=== PATIENT | female | born 1990 | race Caucasian/White ===

== ENCOUNTER 2018-07-30 09:53 | Outpatient (CLI) | payer OTHER, SELFPAY ==
[2018-07-30 11:40] LABS: TSH (W/Ref FT4) 1.33 uIU/mL (0.358-3.74)
== END 2018-07-30 10:13 ==
PROVIDERS: PCP Nurse Practitioner; Visit Provider Nurse Practitioner
DX: I10 Essential (primary) hypertension (principal)
CPT/HCPCS: 36415; 84443

== ENCOUNTER 2018-12-12 11:35 | Emergency (ER) | payer OTHER, SELFPAY ==
[2018-12-12 11:37] VITALS: BP 120/77; PULSE 78; RESP 16; TEMP 37.1; O2SAT 96
--- NOTE | 2018-12-12 11:47 | W.ED.GENAD ---
Discharge Plan Disposition Patient Disposition: HOME Condition: Fair Discharge Details Chief Complaint: Sorethroat Clinical Impression: URI (upper respiratory infection) Primary Care Provider: Malu Morton ED Provider: Diana Billings Home Meds and New Rx's Prescriptions: Continued metronidazole 1 % gel 1 applic TP DAILY Qty: 60 RF: 3 fluticasone propionate [Allergy Relief (fluticasone)] 50 mcg/actuation spray,suspension 2 spray BHARTI DAILY Qty: 15.8 RF: 12 Mirena 1 EACH intrauterine device 1 ea Intrauterine ONCE Qty: 1 RF: 0 Discharge Instructions Instructions: Upper Respiratory Infection (ED) Additional Instructions: Encourage hydration. Tylenol and or ibuprofen as needed for discomfort. You may try Mucinex tabs in the medic management. Please continue with nasal saline. If you develop shortness of breath, difficulty breathing, inability stay hydrated or other new/worsening symptoms please seek care urgently once again. Otherwise, please follow-up with primary care in 1 week for reevaluation if symptoms persist Referrals: Malu Morton, RADIO HOST [Primary Care Provider] - Medical Decision Making Patient is a 28 year old female presenting wth c/c of sore throat, congestion, ear fullness bilaterally, cough, sinus pressure, that began 3 days ago. No fevers/chills. Denies SOB or CP. Denies GI upset. No body aches. Has sinus discomfort buit no MURILLO. Has tried Ibprforn for symptomatic management. Son recently diagnosed with strep, concerned she may have this. Exam is concerning for mildly erythematous posterior orophrynx with cobblestoning noted. No trismus, uvula midline, no swelling under tongue. Lungs clear. Rapid strep negative. Advised this is likely viral etiology. Encourage hydration. Advise on home remedies and OTC medications that may help with symptomatic management. All questions and concerns were addressed, she is in agreement with klaudia parnell. Will f/u with PCP if not improved in one week. HPI General Mode of arrival: ambulatory. Date/Time Provider Initiated Documentation: 12/12/18 11:47. Limitations to Documentation: no limitations. Information obtained by: patient and RN notes reviewed. History of Present Illness 28 year old F presents to the emergency department with the chief complaint of URI symptoms, described as mild, Quality is described as burning, and is localized to the mouth (sore throat). Patient reports no radiation. Patient started experiencing this day(s) (3) and it has been constant. No relieving factors improve symptom(s), No exacerbating factors reported . Patient notes cough; denies chest pain, diaphoresis, fever/chills, loss of appetite, malaise, rash, shortness of breath and weakness. Patient did receive the following treatments prior to arrival, none Related Data Home Medications Medication Instructions Recorded Confirmed Mirena 1 ea INTRAUTERINE ONCE #1 implant 06/23/17 12/12/18 fluticasone propionate 50 2 spray BHARTI DAILY #15.8 gm 07/30/18 12/12/18 mcg/actuation nasal spray,suspension metronidazole 1 % topical gel 1 applic TP DAILY #60 gm 09/24/18 12/12/18 Previous Rx's Medication Instructions Recorded fluticasone propionate 50 2 spray BHARTI DAILY #15.8 gm 07/30/18 mcg/actuation nasal spray,suspension metronidazole 1 % topical gel 1 applic TP DAILY #60 gm 09/24/18 Allergies Allergy/AdvReac Type Severity Reaction Status Date / Time No Known Allergies Allergy Verified 12/12/18 11:48 General Stated Complaint: Sorethroat BASIL: 4 Review of Systems Constitutional Reports as per HPI, Denies chills, Denies fever(s), Denies headache(s) and Denies poor appetite Eyes Reports as per HPI, Denies eye discharge and Denies irritation ENT Reports as per HPI, Denies ear discharge, Reports otalgia, Denies headache(s), Reports nasal discharge, Reports post nasal drip, Reports sinus pain, Reports sinus pressure, Reports sore throat and Denies throat swelling Cardiovascular Reports as per HPI, Denies chest pain and Denies dyspnea Respiratory Reports as per HPI, Reports cough, Denies hemoptysis, Denies pain on inspiration, Denies pain with cough, Denies dyspnea and Denies wheezing Gastrointestinal Reports as per HPI, Denies abdominal pain, Denies change in bowel habits, Denies nausea and Denies vomiting Integumentary/Breasts Reports as per HPI and Denies rash Neurologic Reports as per HPI and Denies headache(s) Allergic/Immunologic Denies throat swelling and Denies wheezing [facility] Medical History Dysmenorrhea IBS (irritable bowel syndrome) Menorrhagia Obesity Polycystic ovarian syndrome Psoriasis Surgical History Cholecystectomy (03/19/17) Colonoscopy - MAC Tonsillectomy and adenoidectomy wisdome teeth extraction Family History Mother Depression Neoplasm Father Antoinette's disease Maternal Grandmother Neoplasm Paternal Grandmother Neoplasm Stroke Paternal Grandfather Diabetes Neoplasm Sister Anemia Social History Smoking/Tobacco Use Status: Former Tobacco Use Pack-years: 3 Alcohol Intake: current Alcohol Intake frequency: a few times a week Alcohol type: wine Drug use: Never Substance use type: does not use Housing: house Number of Children: 1 current occupation: [employer] Pets and animals: Yes (2 dogs,1 cat) Pets and animals: cat(s) and dog(s) What type of physical activity do you participate in: regular exercise Duration: 30-45 minutes/day Frequency: 3-4 times per week Seatbelt use: always Fire extinguisher in home: Yes Carbon monox detector in home: Yes Firearms in home: No Do you feel safe at home: Yes Do you feel safe in your relationship?: Yes Exam Const General: cooperative, healthy appearing, comfortable, no acute distress, well developed and well groomed Nutritional Appearance: average body habitus and well nourished Orientation: alert and awake [facility] Head: normal to inspection, normocephalic and atraumatic Ears: hearing grossly normal bilaterally, external ears normal and TM's normal bilaterally General nose exam: external nose normal and nares normal Face and sinus: normal facial exam, sinuses nontender and face symmetric Mouth: oral mucosae normal, lip normal, tongue normal, oropharynx normal and moist mucous membranes Teeth and gingiva: dentition normal Throat: posterior oropharynx abnormal (erythematous, cobblestoning noted), tonsils normal, uvula midline and no peritonsillar masses Eyes General: appearance normal, both eyes and all related structures Neck Neck: normal visual inspection, full ROM, no lymphadenopathy and no meningeal signs Resp Effort & Inspection: normal respiratory effort, able to speak in complete sentences and no respiratory distress Auscultation: clear to auscultation bilaterally, no rales, no rhonchi and no wheezes Cardio Rate: regular rate Rhythm: regular rhythm Heart Sounds: S1 normal and S2 normal Skin General skin exam: no rashes or lesions noted Neuro General: alert and awake Cognition: normal cognition Speech: speech normal Gait: normal gait Psych Appearance: grossly normal and well kempt Mental Status: mental status grossly normal Speech and Movement: speech and movement normal Course Vital Signs Temperature 37.1 C 12/12/18 11:37 Pulse 78 12/12/18 11:37 Respiratory Rate 16 12/12/18 11:37 Blood Pressure 120/77 12/12/18 11:37 Pulse Oximetry 96 12/12/18 11:37 Temperature 37.1 C 12/12/18 11:37 Temperature Source Skin 12/12/18 11:37 Pulse 78 12/12/18 11:37 Respiratory Rate 16 12/12/18 11:37 Blood Pressure 120/77 12/12/18 11:37 Blood Pressure Position Sitting 12/12/18 11:37 Pulse Oximetry 96 12/12/18 11:37 Oxygen Delivery Method Room Air 12/12/18 11:37 Oxygen Flow Rate 0 12/12/18 11:37 Pain Level 5 12/12/18 11:37 Comment 12/12/18 11:37
--- NOTE | 2018-12-12 12:00 | ED.GENADUL_ITS ---
Discharge Plan Disposition Patient Disposition: HOME Condition: Fair Discharge Details Chief Complaint: Sorethroat Clinical Impression: URI (upper respiratory infection) Primary Care Provider: Malu Morton ED Provider: Diana Billings Home Meds and New Rx's Prescriptions: Continued metronidazole 1 % gel 1 applic TP DAILY Qty: 60 RF: 3 fluticasone propionate [Allergy Relief (fluticasone)] 50 mcg/actuation spray,suspension 2 spray BHARTI DAILY Qty: 15.8 RF: 12 Mirena 1 EACH intrauterine device 1 ea Intrauterine ONCE Qty: 1 RF: 0 Discharge Instructions Instructions: Upper Respiratory Infection (ED) Additional Instructions: Encourage hydration. Tylenol and or ibuprofen as needed for discomfort. You may try Mucinex tabs in the medic management. Please continue with nasal saline. If you develop shortness of breath, difficulty breathing, inability stay hydrated or other new/worsening symptoms please seek care urgently once again. Otherwise, please follow-up with primary care in 1 week for reevaluation if symptoms persist Referrals: Malu Morton, MAIL PROCESSING ASSOCIATE [Primary Care Provider] - Medical Decision Making Patient is a 28 year old female presenting wth c/c of sore throat, congestion, ear fullness bilaterally, cough, sinus pressure, that began 3 days ago. No fevers/chills. Denies SOB or CP. Denies GI upset. No body aches. Has sinus discomfort buit no MURILLO. Has tried Ibprforn for symptomatic management. Son recently diagnosed with strep, concerned she may have this. Exam is concerning for mildly erythematous posterior orophrynx with cobblestoning noted. No trismus, uvula midline, no swelling under tongue. Lungs clear. Rapid strep negative. Advised this is likely viral etiology. Encourage hydration. Advise on home remedies and OTC medications that may help with symptomatic management. All questions and concerns were addressed, she is in agreement with klaudia parnell. Will f/u with PCP if not improved in one week. HPI General Mode of arrival: ambulatory . Date/Time Provider Initiated Documentation: 12/12/18 11:47 . Limitations to Documentation: no limitations . Information obtained by: patient and RN notes reviewed . History of Present Illness 28 year old F presents to the emergency department with the chief complaint of URI symptoms, described as mild, Quality is described as burning, and is localized to the mouth (sore throat). Patient reports no radiation. Patient started experiencing this day(s) (3) and it has been constant. No relieving factors improve symptom(s), No exacerbating factors reported . Patient notes cough; denies chest pain, diaphoresis, fever/chills, loss of appetite, malaise, rash, shortness of breath and weakness. Patient did receive the following treatments prior to arrival, none Related Data Home Medications Medication Instructions Recorded Confirmed Mirena 1 ea INTRAUTERINE ONCE #1 implant 06/23/17 12/12/18 fluticasone propionate 50 2 spray BHARTI DAILY #15.8 gm 07/30/18 12/12/18 mcg/actuation nasal spray,suspension metronidazole 1 % topical gel 1 applic TP DAILY #60 gm 09/24/18 12/12/18 Previous Rx's Medication Instructions Recorded fluticasone propionate 50 2 spray BHARTI DAILY #15.8 gm 07/30/18 mcg/actuation nasal spray,suspension metronidazole 1 % topical gel 1 applic TP DAILY #60 gm 09/24/18 Allergies Allergy/AdvReac Type Severity Reaction Status Date / Time No Known Allergies Allergy Verified 12/12/18 11:48 General Stated Complaint: Sorethroat BASIL: 4 Review of Systems Constitutional Reports as per HPI, Denies chills, Denies fever(s), Denies headache(s) and Denies poor appetite Eyes Reports as per HPI, Denies eye discharge and Denies irritation ENT Reports as per HPI, Denies ear discharge, Reports otalgia, Denies headache(s), Reports nasal discharge, Reports post nasal drip, Reports sinus pain, Reports sinus pressure, Reports sore throat and Denies throat swelling Cardiovascular Reports as per HPI, Denies chest pain and Denies dyspnea Respiratory Reports as per HPI, Reports cough, Denies hemoptysis, Denies pain on inspiration, Denies pain with cough, Denies dyspnea and Denies wheezing Gastrointestinal Reports as per HPI, Denies abdominal pain, Denies change in bowel habits, Denies nausea and Denies vomiting Integumentary/Breasts Reports as per HPI and Denies rash Neurologic Reports as per HPI and Denies headache(s) Allergic/Immunologic Denies throat swelling and Denies wheezing [facility] Medical History Dysmenorrhea IBS (irritable bowel syndrome) Menorrhagia Obesity Polycystic ovarian syndrome Psoriasis Surgical History Cholecystectomy (03/19/17) Colonoscopy - MAC Tonsillectomy and adenoidectomy wisdome teeth extraction Family History Mother Depression Neoplasm Father Antoinette's disease Maternal Grandmother Neoplasm Paternal Grandmother Neoplasm Stroke Paternal Grandfather Diabetes Neoplasm Sister Anemia Social History Smoking/Tobacco Use Status: Former Tobacco Use Pack-years: 3 Alcohol Intake: current Alcohol Intake frequency: a few times a week Alcohol ty pe: wine Drug use: Never Substance use type: does not use Housing: house Number of Children: 1 current occupation: [employer] Pets and animals: Yes (2 dogs,1 cat) Pets and animals: cat(s) and dog(s) What type of physical activity do you participate in: regular exercise Duration: 30-45 minutes/day Frequency: 3-4 times per week Seatbelt use: always Fire extinguisher in home: Yes Carbon monox detector in home: Yes Firearms in home: No Do you feel safe at home: Yes Do you feel safe in your relationship?: Yes Exam Const General: cooperative, healthy appearing, comfortable, no acute distress, well developed and well groomed Nutritional Appearance: average body habitus and well nourished Orientation: alert and awake [facility] Head: normal to inspection, normocephalic and atraumatic Ears: hearing grossly normal bilaterally, external ears normal and TM's normal bilaterally General nose exam: external nose normal and nares normal Face and sinus: normal facial exam, sinuses nontender and face symmetric Mouth: oral mucosae normal, lip normal, tongue normal, oropharynx normal and moist mucous membranes Teeth and gingiva: dentition normal Throat: posterior oropharynx abnormal (erythematous, cobblestoning noted), tonsils normal, uvula midline and no peritonsillar masses Eyes General: appearance normal, both eyes and all related structures Neck Neck: normal visual inspection, full ROM, no lymphadenopathy and no meningeal signs Resp Effort & Inspection: normal respiratory effort, able to speak in complete sentences and no respiratory distress Auscultation: clear to auscultation bilaterally, no rales, no rhonchi and no wheezes Cardio Rate: regular rate Rhythm: regular rhythm Heart Sounds: S1 normal and S2 normal Skin General skin exam: no rashes or lesions noted Neuro General: alert and awake Cognition: normal cognition Speech: speech normal Gait: normal gait Psych Appearance: grossly normal and well kempt Mental Status: mental status grossly normal Speech and Movement: speech and movement normal Course Vital Signs Temperature 37.1 C 12/12/18 11:37 Pulse 78 12/12/18 11:37 Respiratory Rate 16 12/12/18 11:37 Blood Pressure 120/77 12/12/18 11:37 Pulse Oximetry 96 12/12/18 11:37 Temperature 37.1 C 12/12/18 11:37 Temperature Source Skin 12/12/18 11:37 Pulse 78 12/12/18 11:37 Respiratory Rate 16 12/12/18 11:37 Blood Pressure 120/77 12/12/18 11:37 Blood Pressure Position Sitting 12/12/18 11:37 Pulse Oximetry 96 12/12/18 11:37 Oxygen Delivery Method Room Air 12/12/18 11:37 Oxygen Flow Rate 0 12/12/18 11:37 Pain Level 5 12/12/18 11:37 Comment 12/12/18 11:37
== END 2018-12-12 12:15 | disposition home or self-care (01) ==
PROVIDERS: Emergency Provider Physician Assistant; PCP Nurse Practitioner
DX: J06.9 Acute upper respiratory infection, unspecified (principal)
CPT/HCPCS: 87880; 99282; 87081

== ENCOUNTER 2019-01-25 12:51 | Outpatient (CLI) | payer OTHER, SELFPAY ==
[2019-01-25 13:51] LABS: Anion Gap 9.5 mmol/L (3-11); BUN 15 mg/dL (7-18); CO2 26.5 mmol/L (21.0-32.0); CREATININE 0.87 mg/dL (0.55-1.02); Calcium 9.3 mg/dL (8.5-10.1); Chloride 103 mmol/L (98-107); Glucose 82 mg/dL (70-100); Potassium 4.2 mmol/L (3.5-5.1); Sodium 139 mmol/L (136-145)
== END 2019-01-25 13:11 ==
PROVIDERS: PCP Nurse Practitioner; Visit Provider Family Medicine
DX: Z13.228 Encounter for screening for other metabolic disorders (principal)
CPT/HCPCS: 36415; 80048

== ENCOUNTER 2019-02-05 01:11 | Outpatient (CLI) | payer OTHER, SELFPAY ==
--- NOTE | 2019-02-05 14:53 | DI.CT_ITS ---
SYMPTOMS/DIAGNOSIS: PAINFUL AREA IN THE ANTERIOR NASAL SEPTUM, J34.89-OTHER DISORDER OF NOSE AND SINUSES FACIAL CT: Comparison is made with November,. The nasal septum is deviated toward the left. There is no evidence of bony destruction or soft tissue mass. There is no thickening of the nasal turbinates. There is minimal mucus retention within a right ethmoid air cell. The remaining sinuses appear clear. The ostiomeatal complexes appear patent. The orbits appear normal. IMPRESSION: Deviated nasal septum. No evidence of mass or bony destruction.
== END 2019-02-05 01:31 ==
PROVIDERS: PCP Nurse Practitioner; Visit Provider Family Medicine
DX: J34.89 Other specified disorders of nose and nasal sinuses (principal); J34.2 Deviated nasal septum
CPT/HCPCS: 70486

== ENCOUNTER 2019-07-03 10:23 | Emergency (ER) | payer OTHER, SELFPAY ==
[2019-07-03 10:27] VITALS: BP 129/74; PULSE 86; RESP 16; TEMP 36.7; O2SAT 98
--- NOTE | 2019-07-03 10:55 | ED.GENADUL_ITS ---
Discharge Plan Disposition Patient Disposition: HOME Condition: Fair Discharge Details Chief Complaint: EarProblem Clinical Impression: Acute otitis media of both ears with perforated tympanic membrane Primary Care Provider: Malu Morton ED Provider: Diana Billings Home Meds and New Rx's Prescriptions: New amoxicillin-pot clavulanate [Augmentin] 875-125 mg tablet 1 tab PO BID Qty: 20 RF: 0 Continued metronidazole 1 % gel 1 applic TP DAILY Qty: 60 RF: 3 Mirena 1 EACH intrauterine device 1 ea Intrauterine ONCE Qty: 1 RF: 0 tacrolimus [Protopic] 0.1 % ointment 1 applic TP BID PRNRF: 0 Discharge Instructions Instructions: Otitis Media (ED) Additional Instructions: Encourage hydration. Continue with Tylenol and ibuprofen as needed for discomfort. Please take the Augmentin as prescribed. Even if symptoms improve, please take the entire course. You will need a reexamination of your ears once the drainage has begun to clear, please call your primary care to schedule appointment at the end of the week. If you develop fever/chills, increased pain or the new/worsening symptoms please seek care urgently once again. Referrals: Malu Morton, CRITICAL CARE CLINICAL NURSE SPECIALIST [Primary Care Provider] - Medical Decision Making Patient is a 28-year-old female presenting today with chief complaint of bilateral ear pain. She reports that 3 days ago she began noting cough, sore throat and congestion. States that then yesterday, she started having bilateral ear pain and is progressively increased over the course the day. States that last night she was unable to sleep secondary to pain. Reports that that the pain suddenly improved and she immediately noted drainage to bilateral ears. She reports that she has had otitis media as an adult, last time was in March. Denies any fevers or chills. Continues to endorse some nasal congestion and mild cough. On exam, she appears nontoxic. She has thick purulent discharge obscuring the tympanic membrane in the left ear. Proximal half of the tympanic membrane is able to visualize on the right again, partially obstructed secondary to the same purulent discharge. The exam is able to be visualized however is very erythematous, swollen with fluid noted behind the tympanic membrane. I am concerned for bilateral otitis media with perforation. Patient be treated with Augmentin. Advise close follow-up with primary care for reevaluation and advi sed she may need to discuss this further with ear nose and throat as she has had this multiple times recently. She is given return precautions. All the questions and concerns were addressed and she is in agreement with this plan. HPI General Mode of arrival: ambulatory . Date/Time Provider Initiated Documentation: 07/03/19 10:44 . Limitations to Documentation: no limitations . Information obtained by: patient and RN notes reviewed . History of Present Illness 28 year old F presents to the emergency department with the chief complaint of Bilateral ear pain and drainage, described as moderate and similar to prior episodes (has had multiple ear infections historically), with intensity rated at 7. Quality is described as aching, and is localized to the face (ears). Patient reports no radiation. Patient started experiencing this day(s) (1) and it has been constant. other things that improve symptom(s), (pain improved since drainage has begun) No exacerbating factors reported . Patient notes cough; denies chest pain, diaphoresis, fever/chills, headaches, loss of appetite, nausea/vomiting, rash and shortness of breath. Patient did receive the following treatments prior to arrival, none Related Data Home Medications Medication Instructions Recorded Confirmed Mirena 1 ea INTRAUTERINE ONCE #1 implant 06/23/17 07/03/19 metronidazole 1 % topical gel 1 applic TP DAILY #60 gm 09/24/18 07/03/19 tacrolimus 0.1 % topical ointment 1 applic TP BID PRN 05/05/19 07/03/19 amoxicillin-pot clavulanate 1 tab PO BID #20 tab 07/03/19 [Augmentin] Previous Rx's Medication Instructions Recorded metronidazole 1 % topical gel 1 applic TP DAILY #60 gm 09/24/18 amoxicillin-pot clavulanate 1 tab PO BID #20 tab 07/03/19 [Augmentin] Allergies Allergy/AdvReac Type Severity Reaction Status Date / Time No Known Allergies Allergy Verified 07/03/19 10:30 General Stated Complaint: EarProblem BASIL: 5 Review of Systems Constitutional Constitutional: Reports as per HPI, Denies chills, Reports fatigue, Denies fever(s) and Denies headache(s) Eyes Eyes: Reports as per HPI, Denies eye discharge and Denies irritation ENT Ears, Nose, Mouth, and Throat: Reports as per HPI and Denies headache(s) Cardiovascular Cardiovascular: Reports as per HPI, Denies chest pain and Denies dyspnea Respiratory Respiratory: Reports as per HPI and Denies dyspnea Gastrointestinal Gastrointestinal: Reports as per HPI, Denies abdominal pain, Denies change in bowel habits, Denies nausea and Denies vomiting Integumentary/Breasts Skin/Breast: Reports as per HPI and Denies rash Neurologic Neurologic: Reports as per HPI and Denies headache(s) Endocrine Endocrine: Reports fatigue PFSH Family History Mother Depression Neoplasm Breast Father Antoinette's disease Maternal Grandmother , breast CA Neoplasm Breast Paternal Grandmother Neoplasm Breast, ovarian Stroke Paternal Grandfather Diabetes Neoplasm Prostate Sister Anemia Social History Smoking/Tobacco Use Status: Former Tobacco Use Pack-years: 3 Alcohol Intake: current Alcohol Intake frequency: a few times a week Alcohol type: wine Drug use: Never Substance use type: does not use Housing: house Number of Children: 1 current occupation: [employer] Pets and animals: Yes (2 dogs,1 cat) Pets and animals: cat(s) and dog(s) What type of physical activity do you participate in: regular exercise Duration: 30-45 minutes/day Frequency: 3-4 times per week Seatbelt use: always Drive intox or ride w/intox power screwdriver operator: No Working smoke detector in home: Yes Fire extinguisher in home: Yes Carbon monox detector in home: Yes Firearms in home: No Do you feel safe at home: Yes Do you feel safe in your relationship?: Yes Exam Const General: cooperative, healthy appearing, comfortable, no acute distress, well developed and well groomed Nutritional Appearance: average body habitus and well nourished Orientation: alert and awake [facility] Head: normal to inspection, normocephalic and atraumatic Ears: hearing grossly normal bilaterally, mastoids normal, no periauricular adenopathy, hearing grossly not impaired, normal mastoids bilaterally, no periauricular adenopathy, TM abnormal wth effusion, erythematous, with fluid behind the TM and perforated (no perforation visualized but concern purulent discharge is obstructing) and unable to visualize TM on the left (Thick purulent discharge filling canal) General nose exam: external nose normal and nares normal Face and sinus: normal facial exam, sinuses nontender and face symmetric Mouth: oral mucosae normal, lip normal, tongue normal, oropharynx normal and moist mucous membranes Teeth and gingiva: dentition normal Throat: posterior oropharynx normal, tonsils normal and uvula midline Eyes General: appearance normal, both eyes and all related structures Neck Neck: normal visual inspection, full ROM, no lymphadenopathy and no meningeal signs Resp Effort & Inspection: normal respiratory effort, able to speak in complete sentences and no respiratory distress Auscultation: clear to auscultation bilaterally, no rales, no rhonchi and no wheezes Cardio Rate: regular rate Rhythm: regular rhythm Heart Sounds: S1 normal and S2 normal Skin General skin exam: no rashes or lesions noted Neuro General: alert and awake Cognition: normal cognition Speech: speech normal Gait: normal gait Psych Appearance: grossly normal and well kempt Mental Status: mental status grossly normal Speech and Movement: speech and movement normal Course Vital Signs Vital signs: Vital Signs Temperature 36.7 C 07/03/19 10:27 Pulse 86 07/03/19 10:27 Respiratory Rate 16 07/03/19 10:27 Blood Pressure 129/74 07/03/19 10:27 Pulse Oximetry 98 07/03/19 10:27 Temperature 36.7 C 07/03/19 10:27 Temperature Source Skin 07/03/19 10:27 Pulse 86 07/03/19 10:27 Respiratory Rate 16 07/03/19 10:27 Respiratory Effort 07/03/19 10:30 Blood Pressure 129/74 07/03/19 10:27 Blood Pressure Position Sitting 07/03/19 10:27 Pulse Oximetry 98 07/03/19 10:27 Oxygen Delivery Method Room Air 07/03/19 10:27 Oxygen Flow Rate 0 07/03/19 10:27 Pain Level 7 07/03/19 10:32
== END 2019-07-03 11:03 | disposition home or self-care (01) ==
PROVIDERS: Emergency Provider Physician Assistant; PCP Nurse Practitioner
DX: H66.013 Acute suppurative otitis media with spontaneous rupture of ear drum, bilateral (principal)
CPT/HCPCS: 99283

== ENCOUNTER 2020-06-01 16:08 | Outpatient (REF) | payer OTHER, SELFPAY ==
--- NOTE | 2020-06-01 15:30 | PAPFT_PTH ---
PATIENT: Shiloh Mello LOC: [facility] U#:[id number] AGE/SX: 29/F ROOM: RE06/01/[address]: JACKSON Leavitt : 1990 BED: DIS: 06/01/2020 SPEC #: [id number] RECD: 06/01/20 17:43 STATUS: BAILEY REHira #: [id number] AROLDO: 06/01/20 15:[address]: Estela Beltran DEPT: [facility] Cytology RECD BY: Ligia Munoz ENTERED: 06/01/20 17:43 SP TYPE: PAPFT DEV DR: Malu Morton APRN Tissues: 1 - CX/ENDOCX FOR PAP SMEARS Procedures: PAP THIN PREP/UVM Screening Comments: [id number]
== END 2020-06-01 16:28 ==
LOC: LBN 16:08
PROVIDERS: PCP Nurse Practitioner; Visit Provider Nurse Practitioner Family
DX: Z12.4 Encounter for screening for malignant neoplasm of cervix (principal); Z97.5 Presence of (intrauterine) contraceptive device
CPT/HCPCS: 88142

== ENCOUNTER 2020-11-16 03:26 | Outpatient (CLI) | payer OTHER, SELFPAY ==
[2020-11-16 21:31] LABS: ALT 31 U/L (14-59); AST 14 U/L (15-37); Albumin 4.1 g/dL (3.4-5.0); Alkaline Phosphatase 63 U/L (46-116); Anion Gap 10.8 mmol/L (3-11); BUN 13 mg/dL (7-18); Bilirubin, Total 0.5 mg/dL (0.2-1.0); CO2 27.2 mmol/L (21.0-32.0); CREATININE 0.8 mg/dL (0.55-1.02); Calcium 9.4 mg/dL (8.5-10.1); Chloride 103 mmol/L (98-107); Glucose 84 mg/dL (74-106); Sodium 141 mmol/L (136-145); Total Protein 7.5 g/dL (6.4-8.2)
== END 2020-11-16 03:27 | disposition home or self-care (01) ==
LOC: LBO 03:26
PROVIDERS: PCP Nurse Practitioner
DX: G50.1 Atypical facial pain (principal)
CPT/HCPCS: 36415; 80053

== ENCOUNTER 2021-11-12 15:28 | Outpatient (REF) | payer OTHER, SELFPAY ==
--- NOTE | 2021-11-12 14:15 | PAPFT_PTH ---
PATIENT: Shiloh Mello LOC: [facility] U#:[id number] AGE/SX: 31/F ROOM: RE11/12/[address]: JACKSON Leavitt : 1990 BED: DIS: 11/12/2021 SPEC #: [id number] RECD: 11/12/21 18:06 STATUS: BAILEY CHEIKH #: [id number] AROLDO: 11/12/21 14:[address]: Estela Beltran DEPT: [facility] Cytology RECD BY: Ligia Munoz ENTERED: 11/12/21 18:06 SP TYPE: PAPFT DEV DR: Malu Morton APRN Tissues: 1 - CX/ENDOCX FOR PAP SMEARS Procedures: PAP THIN PREP/UVM Screening Comments: [id number]
== END 2021-11-12 15:29 | disposition home or self-care (01) ==
LOC: LBN 15:28
PROVIDERS: PCP Nurse Practitioner; Visit Provider Nurse Practitioner Family
DX: Z12.4 Encounter for screening for malignant neoplasm of cervix (principal)
CPT/HCPCS: 88142

== ENCOUNTER 2022-09-20 12:31 | Outpatient (CLI) | payer OTHER, MEDICAID, SELFPAY ==
[2022-09-20 12:55] LABS: HCG Quant, Pregnancy 10 mIU/mL (1-3)
== END 2022-09-20 12:32 | disposition home or self-care (01) ==
LOC: LBO 12:32
PROVIDERS: PCP Nurse Practitioner; Visit Provider Advanced Practice Midwife
DX: Z32.01 Encounter for pregnancy test, result positive (principal)
CPT/HCPCS: 36415; 84702

== ENCOUNTER 2022-09-24 04:30 | Outpatient (CLI) | payer OTHER, MEDICAID, SELFPAY ==
[2022-09-24 10:46] LABS: HCG Quant, Pregnancy 113 mIU/mL (1-3)
== END 2022-09-24 04:31 | disposition home or self-care (01) ==
LOC: LBO 04:30
PROVIDERS: PCP Nurse Practitioner; Visit Provider Advanced Practice Midwife
DX: N92.5 Other specified irregular menstruation (principal); Z32.01 Encounter for pregnancy test, result positive
CPT/HCPCS: 36415; 86850; 86900; 86901; 84702

== ENCOUNTER 2022-11-21 03:17 | Outpatient (CLI) | payer OTHER, MEDICAID, SELFPAY ==
[2022-11-21 10:34] LABS: Panorama Kit Sent via Fed Ex
[2022-11-21 10:58] LABS: Abs Immature Grans 0.02 10^3/uL (0.0-0.06); Absolute Basophil Count 0.05 10^3/uL (0.0-0.2); Absolute Eosinophil Count 0.07 10^3/uL (0.0-0.7); Absolute Lymphocyte Count 2.21 10^3/uL (1.2-3.4); Absolute Monocyte Count 0.46 10^3/uL (0.1-0.8); Absolute Neutrophil Count 6.31 10^3/uL (1.2-6.7); Basophils % 0.5; Eosinophils % 0.8; HCT 31.6 % (36.0-46.0); HGB 10.3 g/dL (11.2-15.7); Immature Grans % 0.2; Lymphocytes % 24.2; MCH 23.7 pg (27.0-33.0); MCHC 32.6 % (32.0-36.0); MCV 73 fL (80-95); MPV 9.5 fL (8.0-11.0); Neutrophils % 69.3; Platelet Count 261 10^3/uL (130-400); RBC 4.34 10^6/uL (3.93-5.22); RDW 17.6 % (11.7-14.6); RDW-SD 46.2 fL; WBC 9.12 10^3/uL (4.4-10.8)
[2022-11-21 11:04] LABS: Glucose,1 Hr (Glucola) 112 mg/dL (80-140)
[2022-11-21 11:13] LABS: Diff Comment Diff Reviewed
[2022-11-21 11:14] LABS: Microcytosis 2+; Poikilocytes 2+; Polychromasia Present
[2022-11-22 10:42] LABS: Hepatitis B Surface Ag Negative (Negative)
[2022-11-22 10:44] LABS: HIV-1/2 Ag & Ab Screen Negative (Negative)
[2022-11-22 10:48] LABS: Hepatitis C Ab w Rflx HCV PCR Negative (Negative)
[2022-11-22 11:05] LABS: Varicella IgG Antibody Positive (See Note)
[2022-11-22 11:10] LABS: Rubella IgG Ab (UVM) Positive (See Note)
[2022-11-22 23:39] LABS: Syphilis IgG w/Reflex Nonreactive (Nonreactive)
[2022-11-27 12:26] LABS: Specimen WB Whole Blood
[2022-12-06 11:38] LABS: Result Summary NEGATIVE; Specimen WB Whole Blood
== END 2022-11-21 03:18 | disposition home or self-care (01) ==
LOC: LBO 03:17
PROVIDERS: Advanced Practice Midwife; PCP Nurse Practitioner; Visit Provider Advanced Practice Midwife
DX: Z34.91 Encounter for supervision of normal pregnancy, unspecified, first trimester
CPT/HCPCS: 36415; 81220; 81222; 81329; 82950; 86787; 86803; 86850; 86900; 86901; 87340; 87389; 85025; 86762; 86780

== ENCOUNTER 2022-11-21 12:53 | Outpatient (REF) | payer OTHER, MEDICAID, SELFPAY ==
[2022-11-21 13:32] LABS: *AMPHETAMINES SCREEN URINE Negative (Negative); *BARBITURATES SCREEN URINE Negative (Negative); *BENZODIAZEPINES SCREEN URINE Negative (Negative); Cannabinoids THC Negative (Negative); Cocaine Screen,Urine Negative (Negative); METHADONE URINE SCREEN Negative (Negative); OPIATES URINE SCREEN Negative (Negative)
[2022-11-21 13:36] LABS: Tricyclic Antidepressants Negative (Negative)
[2022-11-22 13:33] LABS: Chlamydia Result Negative (Negative); GC Result Negative (Negative)
[2022-11-27 15:30] LABS: Buprenorphine Negative ng/mL (Cutoff: 5.0); Norbuprenorphine Negative ng/mL (Cutoff: 2.5)
== END 2022-11-21 12:54 | disposition home or self-care (01) ==
LOC: LBN 12:53
PROVIDERS: PCP Nurse Practitioner; Visit Provider Advanced Practice Midwife
DX: Z34.90 Encounter for supervision of normal pregnancy, unspecified, unspecified trimester (principal)
CPT/HCPCS: 80307; 80348; 87491; 87591; 87086

== ENCOUNTER 2022-12-19 01:46 | Outpatient (CLI) | payer OTHER, MEDICAID, SELFPAY ==
[2022-12-23 10:53] LABS: AFP 43.1 ng/mL; Calculated age at EDD 30 years; Cigarette smoking status non-Smoker; GA used in risk estimate Scan estimate; IVF Pregnancy No; Initial or repeat testing Initial testing; Insulin dependent diabetes No; Maternal Weight 200 lbs; Number of Fetuses 1; Physician Phone Number 802-748-7300; Prev Pregnancy w/NTD No; RECOMMENDED FOLLOW UP None.; Results Summary Normal risk
== END 2022-12-19 01:47 | disposition home or self-care (01) ==
LOC: LBO 01:47
PROVIDERS: PCP Nurse Practitioner; Visit Provider Advanced Practice Midwife
DX: Z34.92 Encounter for supervision of normal pregnancy, unspecified, second trimester (principal); Z3A.15 15 weeks gestation of pregnancy; Z36.89 Encounter for other specified antenatal screening
CPT/HCPCS: 36415; 82105

== ENCOUNTER 2023-03-18 03:05 | Outpatient (CLI) | payer OTHER, MEDICAID, SELFPAY ==
[2023-03-18 09:30] LABS: HCT 30.2 % (36.0-46.0); HGB 9.1 g/dL (11.2-15.7); MCH 22.1 pg (27.0-33.0); MCHC 30.1 % (32.0-36.0); MPV 9.9 fL (8.0-11.0); Platelet Count 260 10^3/uL (130-400); RBC 4.12 10^6/uL (3.93-5.22); RDW 15.3 % (11.7-14.6); RDW-SD 40.5 fL; WBC 9.69 10^3/uL (4.4-10.8)
[2023-03-18 09:34] LABS: MCV 73 fL (80-95)
[2023-03-18 09:39] LABS: Glucose,1 Hr (Glucola) 122 mg/dL (80-140)
== END 2023-03-18 03:06 | disposition home or self-care (01) ==
PROVIDERS: Advanced Practice Midwife; PCP Nurse Practitioner; Visit Provider Advanced Practice Midwife
DX: Z34.93 Encounter for supervision of normal pregnancy, unspecified, third trimester (principal); Z3A.28 28 weeks gestation of pregnancy
CPT/HCPCS: 36415; 82950; 85027

== ENCOUNTER 2023-04-10 03:57 | Outpatient (RCR) | payer OTHER, MEDICAID, SELFPAY ==
[2023-03-20] MEDS: IRON SUCROSE COMPLEX 200 MG in Normal Saline 100 ML 440 MG IVPB (09:13)
[2023-03-20] MEDS: Normal Saline Flush 10 ML SYR IVP (09:13)
[2023-03-26 09:25] LABS: HCT 31.6 % (36.0-46.0); HGB 9.7 g/dL (11.2-15.7)
[2023-03-26] MEDS: IRON SUCROSE COMPLEX 200 MG in Normal Saline 100 ML 440 MG IVPB (10:02)
[2023-04-03] MEDS: Normal Saline Flush 10 ML SYR IVP (08:12)
[2023-04-03 08:23] LABS: HCT 33.6 % (36.0-46.0); HGB 10.4 g/dL (11.2-15.7)
[2023-04-03] MEDS: IRON SUCROSE COMPLEX 200 MG in Normal Saline 100 ML 440 MG IVPB (08:39)
[2023-04-10] MEDS: Normal Saline Flush 10 ML SYR IVP (08:23)
[2023-04-10 08:27] LABS: HCT 34.1 % (36.0-46.0); HGB 10.8 g/dL (11.2-15.7)
[2023-04-10] MEDS: IRON SUCROSE COMPLEX 200 MG in Normal Saline 100 ML 440 MG IVPB (08:46)
== END 2023-04-17 23:59 | disposition home or self-care (01) ==
LOC: INF 03:57
PROVIDERS: PCP Nurse Practitioner; Visit Provider Advanced Practice Midwife
DX: O99.013 Anemia complicating pregnancy, third trimester (principal)
CPT/HCPCS: 36415; 96365; 85014; 85018; J1756

== ENCOUNTER → 2023-04-22 02:01 | Outpatient (CLI) | payer OTHER, MEDICAID, SELFPAY ==
--- NOTE | 2023-04-22 07:00 | DI.US_ITS ---
Exam(s) US OB MUNA WEIGHT EXAM: US OB MUNA WEIGHT CLINICAL HISTORY: eccentric cord insertion,O36.5131. TECHNIQUE: Transabdominal obstetrical ultrasound was performed. COMPARISON: US US OB F/U FACIAL/LVOT/RVOT from 03/18/2023 FINDINGS: There is a single viable intrauterine gestation with cardiac activity identified-127 bpm The fetus is presently in cephalic position with spine pointing anterior-right. Amniotic fluid: There is a normal amount of amniotic fluid with an MUNA of 13.69cm. Placental location: The placenta is predominantly posterior grade 1,with no evidence of placenta prev ia.Distance from tip of placenta to the internal cervical os is 11.7 cm. There also appears to be pl acental tissue anteriorly/possible accessory lobe placenta. Dating parameters place this at approximately 33 weeks and 6 days gestational age, implying RANDAL of June 04, 2023. BPD measures 34 weeks and 1 day HC measures 34 weeks and 4 days AC measures 33 weeks and 3 days FL measures 33 weeks and 2 days Estimated weight is 2219 gm-4 pounds 14 ounces Fetus is at the 53rd percentile on the Hadlock scale. IMPRESSION:: Viable 3rd trimester gestation, as described above. DATA REPOSITORY:
== END ==
PROVIDERS: PCP Nurse Practitioner; Visit Provider Advanced Practice Midwife
DX: O36.5131 Maternal care for known or suspected placental insufficiency, third trimester, fetus 1 (principal); Z34.93 Encounter for supervision of normal pregnancy, unspecified, third trimester
CPT/HCPCS: 76816

== ENCOUNTER 2023-04-29 02:19 | Outpatient (RCR) | payer OTHER, MEDICAID, SELFPAY ==
[2023-04-24 08:17] LABS: HCT 34.2 % (36.0-46.0)
[2023-04-24] MEDS: IRON SUCROSE COMPLEX 200 MG in Normal Saline 100 ML 440 MG IVPB (08:34)
[2023-04-24] MEDS: Normal Saline Flush 10 ML SYR IVP (08:34)
== END 2023-05-17 23:59 | disposition home or self-care (01) ==
LOC: INF 02:19
PROVIDERS: PCP Nurse Practitioner; Visit Provider Advanced Practice Midwife
DX: O99.019 Anemia complicating pregnancy, unspecified trimester (principal)
CPT/HCPCS: 36415; 96365; 85014; 85018; J1756

== ENCOUNTER 2023-05-12 10:15 | Outpatient (REF) | payer OTHER, MEDICAID, SELFPAY | END 2023-05-12 10:16 | disposition home or self-care (01) | LOC: LBN 10:15 | PROVIDERS: PCP Nurse Practitioner; Visit Provider Advanced Practice Midwife | DX: Z34.93 Encounter for supervision of normal pregnancy, unspecified, third trimester (principal); Z36.85 Encounter for antenatal screening for Streptococcus B; Z3A.36 36 weeks gestation of pregnancy | CPT/HCPCS: 87081 ==

== ENCOUNTER 2023-06-03 15:21 | Outpatient (CLI) | payer OTHER, MEDICAID, SELFPAY ==
[2023-06-03 15:28] VITALS: BP 136/90; PULSE 80; TEMP 36.6
[2023-06-03 15:43] VITALS: BP 136/90; PULSE 80
[2023-06-03 16:07] LABS: HCT 36.9 % (36.0-46.0); HGB 12.3 g/dL (11.2-15.7); MCH 26.2 pg (27.0-33.0); MCHC 33.3 % (32.0-36.0); MCV 79 fL (80-95); MPV 10.7 fL (8.0-11.0); Platelet Count 235 10^3/uL (130-400); RDW 19.9 % (11.7-14.6); RDW-SD 55.8 fL; WBC 10.04 10^3/uL (4.4-10.8)
[2023-06-03 16:11] VITALS: BP 134/77; PULSE 80
[2023-06-03 16:15] LABS: COMMENT (LAB VIEW ONLY) 101.34 mg/dL; PROTEIN 22.9 mg/dL; Prot/Crea Ur Ratio 0.22
[2023-06-03 16:28] LABS: ALT 18 U/L (14-59); AST 16 U/L (15-37); Albumin 2.4 g/dL (3.4-5.0); Alkaline Phosphatase 175 U/L (46-116); Anion Gap 10.2 mmol/L (3-11); BUN 10 mg/dL (7-18); Bilirubin, Total 0.2 mg/dL (0.2-1.0); CO2 19.8 mmol/L (21.0-32.0); CREATININE 0.6 mg/dL (0.55-1.02); Calcium 8.8 mg/dL (8.5-10.1); Chloride 103 mmol/L (98-107); Estimated GFR 123.76 (mL/min/1.73m2); Glucose 94 mg/dL (74-106); Potassium 3.6 mmol/L (3.5-5.1); Sodium 133 mmol/L (136-145); Total Protein 6.7 g/dL (6.4-8.2); Uric Acid 4.6 mg/dL (2.6-6.0)
--- NOTE | 2023-06-03 16:37 | W.OBNST ---
Date of service: 06/03/23 Time of Service: 16:30 NST Evaluation Reason for NST Reasons for Nonstress Test: GESTATIONAL HYPERTENSION Gestational Age Gestational Age in Weeks and Days: 39 Weeks and 1Days Test and Monitor Explained Test/Monitor Explained: Test Explained and Monitor Explained Vital Signs Blood Pressure: 136/90 Pulse: 80 Temperature: 97.9 F NST Information Date on Monitor: 06/03/23 Time on Monitor: 15:27 NST Interventions: PO Hydration NST Evaluation Patient States Movement: Present FHR Baseline: 115 Variability: Moderate 6-25 bpm Accelerations: 15x15 Decelerations: None NST Results: Reactive Note Ultrasound Done: N/A. NST Note Note: NST is reactive and reassuring. Labs for pre-eclampsia done and are WNL. Repeat BP 134/77. Patient is planning for induction of labor in morning. She prefer to talk with her and if they choose no induction will come in for NST on this week. Signs of pre-eclampsia reviewed. VE done 2.5/70/-1 soft and posterior. Methods of induction reviewed with patient as well. She responded very well with quick labor and with cervidil last delivery. Will consider a dose of misoprostol if patient desires, otherwise pitocin planned. Patient will call in am to let us know if she is coming in. Dr. Brown notified of NST and labs/repeat BP and patient status, desires. Agrees to plan for induction tomorrow. NST Reviewed and Verified by: Vesna Cole
[2023-06-03 16:41] VITALS: BP 136/90; PULSE 80; TEMP 36.6
== END 2023-06-03 16:15 | disposition home or self-care (01) ==
LOC: BCD 15:24 → OBS 15:28
PROVIDERS: PCP Nurse Practitioner; Visit Provider Advanced Practice Midwife
DX: O13.3 Gestational [pregnancy-induced] hypertension without significant proteinuria, third trimester (principal); Z3A.39 39 weeks gestation of pregnancy
CPT/HCPCS: 80053; 85027; 59025; 82565; 84156; 84550

== ENCOUNTER 2023-06-04 07:12 | Inpatient (IN) | payer OTHER, MEDICAID, SELFPAY ==
[2023-06-04] VITALS (16 sets, daily range): BP systolic 122–140; BP diastolic 66–88; PULSE 75–92; RESP 16–20; TEMP 36.6–37.2; O2SAT 20–98
--- NOTE | 2023-06-04 07:16 | W.PM.OBHPL1 ---
Date of service: 06/04/23 Time of Service: 07:16 Assessment and Plan Assessment and plan (1) Gestational [-induced] hypertension without significant proteinuria, third trimester: Status: Acute Assessment and plan: 1. Plan was to do induction today for GHTN that was diagnosed yesterday afternoon, labor ensued at 0100 today and will monitor for progress of normal labor at this time 2. Augment if indicated 3. Pre-eclampsia labs were negative yesterday. No severe range BP today. CMP repeated on admission with CBC and type and screen 4. Anesthesia and OB Physicians notified of admission with agreed upon method of notifying of admission of patient with or for HTN disorders. 5. Expect NVD. Will gain IV access and if need for IV antihypertensive medication will add second IV site as well. OB-HPI Labor/Delivery History of Present Illness Reason for Visit: labor Chief Complaint: Uterine Contractions. RANDAL Calculator Estimated Delivery Date Method Current WG Current Estimate 06/09/23 Ultrasound #1 39w 2d Other Estimates 05/15/23 LMP (Certain) 42w 6d Comments: Shiloh was scheduled for induction of labor today due to onset of GHTN at 39w1d. Labs for pre-eclampsia were normal 06/[address] Brown and CNM decided to allow patient to return today for induction after reactive NST. Shiloh started having regular contractions at 0100 today and they became every 10 minutes at approximately 0400 and then every 5 minutes at 0600. She is working well with contractions. Denies MURILLO, visual disturbance or epigastric pain. Her is bedside and supportive. VE yesterday was 2.5cm/70/-1 posterior and soft. This morning VE is 4,80%, mid position, soft, VTX -1, Will admit and monitor for labor progression and augment if indicated. Due to BP elevation yesterday and mildly today at 139/88 on admit. Will add CMP to labs. COVID test will be held as she had COVID in past 90 days. KH History of Present Expected Delivery Route/Plan - CNM FOB - Marcelo Smart (2nd child together) BG GBS negative Specific Issues/Plan 1. BMI 34 - early GTT 112; 28 wk glucola 122 2. Genetic testing: panorama neg, CF/SMA neg and AFP normal risk 3. Chronic constipation- Metamucil PRN 4. Increased risk preeclampsia - ASA recommended daily- started 15 weeks 5. Initial CBC mild anemia (hgb 10.3), taking vitamin with iron, repeat hgb 5a. anemia at 28 wks @ 9.1, will start iron infusions until hgb >11 6. Low lying placenta, marginal cord insertion: f/up on 03/18 @ 28 wks 6a. At 28 wks, scan shows no low lying placenta. cord insertion e-centric >4 cm from edge- growth US not done previously 6b. 9/ placenta post w/possible ant accessory lobe >11cm from os, growth 53% normal MUNA 7. Covid infection 04/11, offered paxlovid if she experiences flu-like symptoms. 8. Anemia in third trimester, treated with iron infusions x4 Assessment: History Reviewed & Current Informed Consent Informed Consent: Augmentation of Labor and Risk,Benefits,Alternatives Discussed Review of Systems All systems reviewed & are unremarkable except as noted in HPI and below Genitourinary Comments: No LOF or vaginal bleeding Musculoskeletal Comments: regular uterine contractions PFSH All Active Problems (Updated 06/04/23 @ 07:30 by Vesna Cole CNM) Gestational [-induced] hypertension without significant proteinuria, third trimester (Acute) Elevated blood pressure affecting in third trimester, antepartum (Acute) (Acute) Maternal care for known or suspected placental insufficiency, third trimester, fetus 1 (Acute) Maternal care for known or suspected placental insufficiency, third trimester, not applicable or unspecified (Acute) Anemia affecting (Acute) TMJ dysfunction (Acute) (Acute) Grade I hemorrhoids (Acute) 01/15/22 General Surgery Urinary frequency (Acute) Atypical facial pain (Acute) [place] [facility] [place] Tympanosclerosis of left ear (Acute) Otalgia (Acute) Post-nasal drip (Acute) Anxiety (Acute 07/08/17) Migraine (Acute 01/16/15) Medical History Family history of thyroid disease Inapp chg hCG early preg Rectal bleeding Bilateral otitis media Deviated nasal septum Nasal pain Rosacea Psoriasis (01/16/15) Family history of breast cancer (06/23/17) Mother and both GMs Obesity IBS (irritable bowel syndrome) Dysmenorrhea Menorrhagia Polycystic ovarian syndrome Surgical History wisdome teeth extraction Tonsillectomy and adenoidectomy 2014 Colonoscopy - MAC 2015 Cholecystectomy (03/19/17) Family History Mother Depression Neoplasm Breast Anxiety Cancer Breast cancer Hypertension Father Antoinette's disease Alcohol use disorder 11/01/21 - sober over 11 years Cancer pancreatic and thyroid Prostate cancer Thyroid cancer Maternal Grandmother , breast CA Neoplasm Breast Breast cancer Paternal Grandmother Neoplasm Breast, ovarian Stroke Breast cancer Ovarian cancer Paternal Grandfather Diabetes type 2 Neoplasm Prostate Prostate cancer Sister Anemia Anxiety Maternal Grandfather Heart attack Social History Smoking/Tobacco Use Status: Former Tobacco Use Pack-years: 3 Tobacco: How many years used: 2 Second Hand Exposure: No Smoking risk assessment performed?: Yes Alcohol Intake: never Drug use: Never Substance use type: does not use Adopted: No Caregiver/Support person: No Foster care: No Household members: spouse, children and other Details: Parents Housing: house Number of Children: 1 number of grandchildren: 0 Communication Needs: None Education Level: college Do you need help understanding health information?: Never 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 - [employer] Pets and animals: Yes (1 dog) Pets and animals: cat(s) and dog(s) Sexually active: Yes Do you think of yourself as: straight/heterosexual Current gender identity: female What is your relationship status?: How often do you talk on the phone with friends or family?: three or more times per week How often do you get together with friends or relatives?: three or more times per week Do you belong to any clubs or organized social groups?: no Panel score (0-1 are the most socially isolated patients): 2 What type of physical activity do you participate in: regular exercise and other Details: Stength training, cardio Duration: 45-60 minutes/day Frequency: 3-4 times per week Wanda/Zoroastrian: Anglican Special wanda needs: No Seatbelt use: always Helmet use: Yes Helmet use: always Drive intox or ride w/intox delivery motorcycle driver: No Working smoke detector in home: Yes Fire extinguisher in home: Yes Carbon monox detector in home: Yes Firearms in home: No Do you feel safe at home: Yes Do you feel safe in your relationship?: Yes History History 3 Para 1 Hx # Term Pregnancies 1 Multiple births 0 Hx # Pregnancies 0 Ectopic pregnancies 0 AB induced 1 Hx Number of Living Children 1 AB spontaneous 0 Past Pregnancies Del. Date GA/Weeks # Preg Succ Route Wgt Sex Labor Lgth Anesthesia Location Prov Complic 10/12/16 39 No Yes vaginal 6 lb 4 oz Male 4 [facility] [place] Delivery Date: 10/12/16 Last Updated by: Yuly Sanders IOL due to low fluid and hypertension. Bar Meds Allergies and Home Medications Allergies Allergy/AdvReac Type Severity Reaction Status Date / Time No Known Allergies Allergy Verified 06/04/23 07:27 Home Medications Medication Instructions Recorded Confirmed Type aspirin 81 mg tablet,delayed 81 mg PO DAILY 01/21/23 06/03/23 History release (Adult Low Dose Aspirin) vits no.126-ferrous fum tab PO DAILY 01/21/23 06/03/23 History 28 mg iron-folic acid 800 mcg tablet (Classic ) breast pump #1 ea 03/18/23 06/03/23 Rx omeprazole 40 mg capsule,delayed 40 mg PO DAILY #90 caps 04/22/23 06/03/23 Rx release Exam Physical Exam Vital signs: Temp Pulse Resp BP 98.0 F 78 16 139/88 06/04/23 06:41 06/04/23 06:41 06/04/23 06:41 06/04/23 06:41 Vital Signs Reviewed: Yes Constitutional Constitutional: mild distress (uterine contractions, she is working well with them, Titus is supportive) Detailed Labor and Delivery Exam Dilation: 4 Effacement (%): 80 station: -1 Position: ROT Cervix position: mid Consistency: soft Montoya Score: Cervical Points Exam 0 1 2 3 Dilation Closed 1-2cm 3-4 cm 5-6cm Effacement 0-30% 40-50% 60-70% 80% Consistency Firm Medium Soft Station -3 -2 -1,0 +1,+2 Position Posterior Mid Anterior MONTOYA Score(Cervical Ripeness Score): 10 Amniotic Membrane Status: Intact Contraction Frequency(min): 3-5 Contraction Duration(sec): 30-50 Contraction Intensity: Mild/Moderate Fetus A Heart Rate Baseline: 120 Monitor Accelerations: 15 X 15 Monitor Decelerations: None Variability: Moderate (6-25 BPM) Categories: Category I Est. Weight: 7 lb 6 oz HEENT Exam HEENT Exam: Normal Neck Exam Neck Exam: Normal (visual exam) Chest/Brest/Axilla Exam Chest Exam: Normal Breast Exam Breast Exam: Not Done Respiratory Exam Respiratory Exam: Normal Cardiovascular Exam Cardiovascular Exam: Normal (mild HTN, will monitor BP and has had negative pre-eclampsia labs in past 24 hours) Abdominal Exam Abdominal Exam: Normal (gravid uterus, size equals dates) Rectal Exam Rectal Exam: Not Done Exam Exam: Normal Extremities Exam Extremities Exam: Normal Back/Spine/Pelvis Exam Back Exam: Normal Pelvis Adequate: Yes Skin Exam Skin Exam: Normal Neurological Exam Neurological Exam: Normal Psychiatric Exam Psychiatric Exam: Normal Results Results Group Beta Strep: Negative Blood Type: A+ Rubella Status: Immune Varicella Immunity: Immune Lab Results: SMA and CF neg, cfDNA low risk female, HIV neg, Hep B&C neg, Syphilis neg, GC CT neg. Risk Assessment Risk for Shoulder Dystocia Historical/Initial OB: POSITIVE FOR: Pre- BMI>30 36 Weeks: NEGATIVE FOR: Current Gestational DM, EFW>4500gms or Maternal Weight Gain>40lbs Delivery Plan @ 36wks: NVD Delivery Plan @ 40 wks: vaginal delivery expected. Risk for Pre-Eclampsia Daily Dose ASA Indicated: Yes Yes, if one or more: POSTIVE FOR: Hx Pre-E/Gest HTN Yes, if 2 or more: POSITIVE FOR: BMI>30 Risk for Post- Hemorrhage Initial: NEGATIVE FOR: Multiple Gestation, Previous PPH, Known Clotting Deficiency, Grand Multiparity or Anticoagulation 36 Weeks: NEGATIVE FOR: Anemia, hgb<10, Low platelets(thrombocytopenia), Gestational HTN or Pre-E, Polyhydraminios or EFW>4500gms 40 Weeks: POSITIVE FOR: Gestation HTN or Pre-E; NEGATIVE FOR: Anemia, hgb<10, Low platelets (thrombocytopenia), Polyhydraminios or EFW>4500gms Counseled re: Active Management: Yes Date/Initials: 06/04/23 Risks Reviewed Risks Reviewed Upon Admission: Yes (some increased risk for PPH due to GHTN)
[2023-06-04] MEDS: Lactated Ringers 500 ML IV (07:20)
[2023-06-04 07:55] LABS: HCT 36.7 % (36.0-46.0); HGB 12.2 g/dL (11.2-15.7); MCH 26.1 pg (27.0-33.0); MCHC 33.2 % (32.0-36.0); MCV 79 fL (80-95); MPV 10.5 fL (8.0-11.0); Platelet Count 248 10^3/uL (130-400); RBC 4.67 10^6/uL (3.93-5.22); RDW-SD 56.3 fL; WBC 11.12 10^3/uL (4.4-10.8)
--- NOTE | 2023-06-04 08:08 | PGE_ITS ---
Date of service: 06/04/23 Time of Service: 08:08 Informed Consent Informed Consent: Augmentation of Labor and Risk,Benefits,Alternatives Discussed Assessment and Plan Assessment and plan (1) Placenta succenturiata: Status: Acute Assessment and plan: 1. Reviewed with patient that on US in April there is possible succenturiate lobe of placenta noted. We discussed active management of third stage and risk for PPH. 2. Will repeat VE at 0930 and further discuss second IV access and plan for expectant management vs augmentation of labor. KYLEIGH Objective Temp Pulse Resp BP 98.0 F 78 16 139/88 06/04/23 07:22 06/04/23 07:22 06/04/23 07:22 06/04/23 07:22 Subjective Interval history since last seen: In reviewing chart, senior technical writer discovered that there was indication of possible succenturiate lobe of placenta on US done 04/2023. I have reviewed this with Shiloh and that we will use active management of third stage of labor to encourage all of placenta to deliver and that this can place her at some risk for excessive bleeding. She verbalizes understanding. Will monitor for labor progress at 0930 and further develop plan for augmentation vs expectant management. will readdress option of second IV site at that time as well. KYLEIGH
[2023-06-04 08:11] LABS: ALT 19 U/L (14-59); AST 16 U/L (15-37); Albumin 2.4 g/dL (3.4-5.0); Alkaline Phosphatase 165 U/L (46-116); Anion Gap 11.5 mmol/L (3-11); BUN 9 mg/dL (7-18); Bilirubin, Total 0.3 mg/dL (0.2-1.0); CO2 18.5 mmol/L (21.0-32.0); CREATININE 0.6 mg/dL (0.55-1.02); Calcium 8.9 mg/dL (8.5-10.1); Chloride 104 mmol/L (98-107); Estimated GFR 123.76 (mL/min/1.73m2); Glucose 109 mg/dL (74-106); Potassium 3.7 mmol/L (3.5-5.1); Sodium 134 mmol/L (136-145); Total Protein 6.5 g/dL (6.4-8.2)
[2023-06-04 08:17] LABS: RDW 20.2 % (11.7-14.6)
--- NOTE | 2023-06-04 10:07 | W.PM.OBNL1 ---
Date of service: 06/04/23 Time of Service: 10:08 Informed Consent Informed Consent: Augmentation of Labor and Risk,Benefits,Alternatives Discussed Pelvic Exam Comments: last VE 5.5/80/-1 FSE applied times 2 without ability to trace, returned to [facility]. Contractions Monitor Mode: Palpation Contraction Frequency(min): 3-4 Contraction Duration(sec): 40-60 Intensity: Moderate Fetus A Monitor: External (US) Heart Rate Baseline: 120 Assessment and Plan Assessment and plan (1) Gestational [-induced] hypertension without significant proteinuria, third trimester: Status: Acute Assessment and plan: 1. Labs and VS WNL. Will support spontaneous labor and reassess as needed 2. Nitrous for pain management 3. Expect NVD. OB MD is aware of patient status and succentruiate lobe. Objective Abnormal lab results 06/04/23 Range/Units 07:32 WBC 11.12 H (4.4-10.8) 10^3/uL MCV 79 L (80-95) fL MCH 26.1 L (27.0-33.0) pg RDW 20.2 H (11.7-14.6) % Sodium 134 L (136-145) mmol/L Carbon Dioxide 18.5 L (21.0-32.0) mmol/L Anion Gap 11.5 H (3-11) mmol/L Glucose 109 H (74-106) mg/dL Alkaline Phosphatase 165 H (46-116) U/L Albumin 2.4 L (3.4-5.0) g/dL Temp Pulse Resp BP 97.9 F 83 20 128/80 06/04/23 08:28 06/04/23 08:28 06/04/23 08:28 06/04/23 08:28 Laboratory Results WBC 11.12 10^3/uL (4.4-10.8) H 06/04/23 07:32 RBC 4.67 10^6/uL (3.93-5.22) 06/04/23 07:32 Hgb 12.2 g/dL (11.2-15.7) 06/04/23 07:32 Hct 36.7 % (36.0-46.0) 06/04/23 07:32 MCV 79 fL (80-95) L 06/04/23 07:32 MCH 26.1 pg (27.0-33.0) L 06/04/23 07:32 MCHC 33.2 % (32.0-36.0) 06/04/23 07:32 RDW 20.2 % (11.7-14.6) H 06/04/23 07:32 Plt Count 248 10^3/uL (130-400) 06/04/23 07:32 MPV 10.5 fL (8.0-11.0) 06/04/23 07:32 Sodium 134 mmol/L (136-145) L 06/04/23 07:32 Potassium 3.7 mmol/L (3.5-5.1) 06/04/23 07:32 Chloride 104 mmol/L (98-107) 06/04/23 07:32 Carbon Dioxide 18.5 mmol/L (21.0-32.0) L 06/04/23 07:32 Anion Gap 11.5 mmol/L (3-11) H 06/04/23 07:32 BUN 9 mg/dL (7-18) 06/04/23 07:32 Creatinine 0.6 mg/dL (0.55-1.02) 06/04/23 07:32 Est GFR (CKD-EPI 2020) 123.76 (mL/min/1.73m2) 06/04/23 07:32 Glucose 109 mg/dL (74-106) H 06/04/23 07:32 Calcium 8.9 mg/dL (8.5-10.1) 06/04/23 07:32 Total Bilirubin 0.3 mg/dL (0.2-1.0) 06/04/23 07:32 AST 16 U/L (15-37) 06/04/23 07:32 ALT 19 U/L (14-59) 06/04/23 07:32 Alkaline Phosphatase 165 U/L (46-116) H 06/04/23 07:32 Total Protein 6.5 g/dL (6.4-8.2) 06/04/23 07:32 Albumin 2.4 g/dL (3.4-5.0) L 06/04/23 07:32 Patient ABO/Rh A Positive 06/04/23 07:32 Antibody Screen NEGATIVE 06/04/23 07:32 Vital Signs Reviewed: Yes Subjective Interval history since last seen: working well with contractions, enjoys standing at bedside. Is interested in nitrous for pain management as long as FHR tracing is reassuring. Results Hemoglobin/Hematocrit: Hgb 12.2 g/dL (11.2-15.7) 06/04/23 07:32 Hct 36.7 % (36.0-46.0) 06/04/23 07:32 Abnormal Lab Findings: Abnormal Labs 06/04/23 07:32 WBC 11.12 H MCV 79 L MCH 26.1 L RDW 20.2 H Sodium 134 L Carbon Dioxide 18.5 L Anion Gap 11.5 H Glucose 109 H Alkaline Phosphatase 165 H Albumin 2.4 L
[2023-06-04] MEDS: Oxytocin/Normal Saline 30 UNIT/500 ML BAG 95 UNITS IV (10:50)
--- NOTE | 2023-06-04 11:18 | OBVDS_ITS ---
Date of service: 06/04/23 Time of Service: 11:18 OB Labor/ Delivery Information Baby A Delivery Delivery Method: Spontaneaous Presentation: Cephalic Cephalic Position: Vertex Vertex Position: Right Occipital Anterior Cord Description-Baby A: 3 Vessels and Clamped/Cut Amniotic Fluid: Clear Estimated Blood Loss: 400cc Delivery Outcome: Liveborn Complications: none Note: Shiloh presented in normal labor at 0630 and progressed quickly to involuntary urge to push and at 1046 while on hands and knees in bed. Second stage huddle was held and plan for active management of third stage reviewed. Baby jeane Smith delivered SHAVON over 1st degree perineal laceration at 1048 and was placed skin to skin. Cord was double clamped and cut by FOB at 1 minute of life due to a tear in it while repositioning Mother. Baby was skin to skin. 8 and 9. She has spontaneous urge to push for placenta and placenta and succenturiate lobe delivered intact at . Fundus firms with massage and IV pitocin which was started after baby delivered. bi manual exam done by CNM ensures no clots in lower uterine segment or vaginal and that lower uterine segment was firm. 1% lidocaine was infiltrated into laceration and it was approximated with 1 stitch of 3.0 Vicryl. Sponge, needle and instrument count are correct. Baby was at breast by 10 minutes of life and doing well. Expect normal PP course. Providers Nurse Consulting Sales Manager: Vesna Cole Nurse: Margaret Caballero Nurse: Berenice Olivares Labor/Delivery Information Number of Babies in Womb: 1 Steroids Given: None Reason Steroids Not Administered: N/A Group Beta Strep: Negative Antibiotics Administered: No Rubella Status: Immune Blood Type: A+ Varicella Immunity: Immune Stages of Labor Onset of Labor Date: 06/03/23 Onset of Labor Time: 23:00 Complete Dilatation Date: 06/04/23 Complete Dilatation Time: 10:46 Labor - Stage 1 Duration: 11 hours and 46 minutes ROM Baby A: 06/04/23 ROM Baby A: 09:27 Infant Delivery Date-Baby A: 06/04/23 Infant Delivery Time-Baby A: 10:48 Labor Stage 2 Duration: 2 minutes Placenta Delivery Date-Baby A: 06/04/23 Placenta Delivery Time-Baby A: 10:54 Labor-Stage 3 Duration: 6 minutes Total Length of Labor-Baby A: 11 hours and 48 minutes Placenta Status: Delivered Baby A Infant Gender: Female Gestational Status: Term (39-41.6 wks) Gestational Age in Weeks/Days: 39 Weeks and 2 Days Score-1 Minute Interval(Baby A) Heart Rate-1 minute: 100 BPM or Greater Respiratory Effort- 1 minute: Spontaneous/Strong Cry Muscle Tone-1 minute: Active Movement Reflex Response-1 minute: Minimal Response Color-1 minute: Bluish Hands or Feet Total Score-1 minute: 8 Score-5 Minute Interval(Baby A) Heart Rate- 5 minute: 100 BPM or Greater Respiratory Effort-5 minute: Spontaneous/Strong Cry Muscle Tone-5 minute: Active Movement Reflex Response-5 minute: Prompt Response Color-5 minute: Bluish Hands or Feet Total Score- 5 minute: 9
[2023-06-04] MEDS: Ibuprofen 600 MG TAB PO ×2 (12:57→19:19)
[2023-06-04] MEDS: Acetaminophen 325 MG TAB 650 MG PO ×2 (12:57→19:19)
[2023-06-04] MEDS: Hamamelis Leaf/Glycerin 100 EACH BOX PR (12:57)
[2023-06-04] MEDS: Dibucaine 1% 28 GM TUBE TP (12:57)
[2023-06-05] MEDS: Omeprazole 20 MG CAPCR 40 MG PO (07:23)
[2023-06-05] MEDS: Docusate Sodium 100 MG CAP PO (07:23)
[2023-06-05] MEDS: Ibuprofen 600 MG TAB PO (07:23)
[2023-06-05] MEDS: Acetaminophen 325 MG TAB 650 MG PO (07:23)
[2023-06-05 07:29] VITALS: BP 120/88; PULSE 85; RESP 18; TEMP 36.7; O2SAT 97
--- NOTE | 2023-06-05 08:24 | OBPPV_ITS ---
Date of service: 06/05/23 Time of Service: 08:00 Assessment and Plan Assessment and plan (1) care following vaginal delivery: Status: Acute Assessment and plan: 1. Continue present management 2. possible discharge to home later today if breast feeding is going well. KYLEIGH (2) Lactating mother: Status: Acute Assessment and plan: 1. Support for patience and persistence given, Shiloh has good techniques. 2. Will reassess for possible discharge later today if feeding is well establis hed and pediatric provider agrees Subjective Subjective Interval history: Shiolh is doing well. Working with baby on latching. Slept for a 3 hour space of time and feels rested. Is out of bed and doing own ADL's without difficulty. She has good techniques for breast feeding and baby does latch well when she is calm. Hopes to go home this afternoon. KYLEIGH [place] baby status: Doing well, Nursing well (when latches baby suckles and then comes off frequently.), Rooming in and Strong Bonding Observed [place] feeding status: Exclusively breast feeding Exam Physical Exam Vital signs: Temp Pulse Resp BP Pulse Ox 98.1 F 85 18 120/88 97 06/05/23 07:29 06/05/23 07:29 06/05/23 07:29 06/05/23 07:29 06/05/23 07:29 Vital Signs Reviewed: Yes Narrative: Denies MURILLO, visual disturbance or epigastric pain. Voiding in large amounts. Constitutional Constitutional: no acute distress HEENT Exam HEENT Exam: Normal Neck Exam Neck Exam: Normal (normal visual inspection) Respiratory Exam Respiratory Exam: Normal Cardiovascular Exam Cardiovascular Exam: Normal Abdominal Exam Abdomen: Other (normal exam) Fundal Exam Fundus: Below Umbilicus and Firm Comment: small lochia noted. Rectal Exam Rectal Exam: Not Done Exam Perineum: Intact, Normal and Repair Intact Extremities Exam Extremity Exam: Normal (denies calf tenderness) and Full ROM Back/Spine/Pelvis Exam Back Exam: Normal Skin Exam Skin Exam: Normal Neurological Exam Neurological Exam: Normal Psychiatric Exam Psychiatric Exam: Normal Results Hemoglobin/Hematocrit: Hgb 12.2 g/dL (11.2-15.7) 06/04/23 07:32 Hct 36.7 % (36.0-46.0) 06/04/23 07:32 Abnormal Lab Findings: Abnormal Labs 06/04/23 07:32 WBC 11.12 H MCV 79 L MCH 26.1 L RDW 20.2 H Sodium 134 L Carbon Dioxide 18.5 L Anion Gap 11.5 H Glucose 109 H Alkaline Phosphatase 165 H Albumin 2.4 L
--- NOTE | 2023-06-05 13:52 | DSE_ITS ---
Date of service: 06/05/23 Time of Service: 13:54 DS: Diagnosis Discharge Diagnosis (1) care following vaginal delivery: Status: Acute Asessment and Plan: 1. Continue routine PP care at home 2. PP warning signs reviewed 3. Will RTO in 2 and 6 weeks PP. KH (2) Lactating mother: Status: Acute Asessment and Plan: 1. Continue with current plan of care, follow up with Pediatric provider as scheduled. Discharge Plan Disposition Patient Disposition: Home Condition: Good Discharge Details Reason For Visit: Early Labor at Term Admit Date/Time: 06/04/23 07:12 Admit Provider: Vesna Cole Attending Provider: Vesna Cole Primary Care Provider: Malu Morton Hospital Course Hospital Course: Normal labor and vaginal delivery of live female over 1st degree perineal laceration and normal PP course. Home Meds and New Rx's Prescriptions: Continued Classic 28 mg iron- 800 mcg tablet PO DAILY Patient Comments: alternating dose 1 tab and then 2 omeprazole 40 mg capsule,delayed release(DR/EC) 40 mg PO DAILY Qty: 90 1RF Discontinued aspirin [Adult Low Dose Aspirin] 81 mg tablet,delayed release (DR/EC) 81 mg PO DAILY No Action (DME) breast pump Device See Rx Instructions .ROUTE .MEDSUPPLY Qty: 1 0RF Rx Instructions: As directed Discharge Instructions Stand Alone Forms: BC Instructions, BC Post Vaginal Deliver Activity:: Activity as Tolerated Equipment/Supplies:: No Equipment Needed Diet:: As Tolerated Discharge Orders Discharge Orders: Discharge Order (Routine); Ordered 06/05/23 Ordered By: Vesna Cole OB:DS Summary Summary Vaginal Delivery Method: Spontaneaous Laceration Extension: First Degree Contraception Discussed Contraception Discussed: Yes Contraceptive Plan: Control Pill/Patch, Riddle Gender-Baby A: Female weight: 6 lb 1.709 oz Disposition of Baby A: Home Status at Discharge Functional status at discharge: independent ambulation Overall status at discharge: patient is back to baseline Mental Status: mental status grossly normal Speech and Movement: speech and movement normal Mood: congruent mood Affect: normal affect Exam Physical Exam Vital signs: Temp Pulse Resp BP Pulse Ox 98.1 F 85 18 120/88 97 06/05/23 07:29 06/05/23 07:29 06/05/23 07:29 06/05/23 07:29 06/05/23 07:29 Vital Signs Reviewed: Yes Constitutional Constitutional: no acute distress, average body habitus and cooperative HEENT Exam HEENT Exam: Normal Neck Exam Neck Exam: Normal (normal visual inspection) Respiratory Exam Respiratory Exam: Normal Cardiovascular Exam Cardiovascular Exam: Normal Abdominal Exam Abdomen: Other (normal exam) Fundal Exam Fundus: Below Umbilicus and Firm Comment: small lochia noted. KH Rectal Exam Rectal Exam: Not Done Exam Perineum: Intact and Normal Extremities Exam Extremity Exam: Normal (denies calf tenderness) and Full ROM Back/Spine/Pelvis Exam Back Exam: Normal Skin Exam Skin Exam: Normal Neurological Exam Neurological Exam: Normal Psychiatric Exam Psychiatric Exam: Normal PFSH All Active Problems (Updated 06/05/23 @ 08:29 by Vesna Cole CNM) Lactating mother (Acute) care following vaginal delivery (Acute) (Acute) TMJ dysfunction (Acute) (Acute) Grade I hemorrhoids (Acute) 01/15/22 General Surgery Medical History (Updated 06/05/23 @ 08:29 by Vesna Cole CNM) Placenta succenturiata Gestational [-induced] hypertension without significant proteinuria, third trimester Elevated blood pressure affecting in third trimester, antepartum Maternal care for known or suspected placental insufficiency, third trimester, fetus 1 Maternal care for known or suspected placental insufficiency, third trimester, not applicable or unspecified Anemia affecting Urinary frequency Atypical facial pain 05/31/20 [facility] Neuro Tympanosclerosis of left ear Otalgia Post-nasal drip Anxiety (07/08/17) Migraine (01/16/15) Family history of thyroid disease Inapp chg hCG early preg Rectal bleeding Bilateral otitis media Deviated nasal septum Nasal pain Rosacea Psoriasis (01/16/15) Family history of breast cancer (06/23/17) Mother and both GMs Obesity IBS (irritable bowel syndrome) Dysmenorrhea Menorrhagia Polycystic ovarian syndrome Surgical History wisdome teeth extraction Tonsillectomy and adenoidectomy 2014 Colonoscopy - MAC 2015 Cholecystectomy (03/19/17) Family History Mother Depression Neoplasm Breast Anxiety Cancer Breast cancer Hypertension Father Antoinette's disease Alcohol use disorder 11/01/21 - sober over 11 years Cancer pancreatic and thyroid Prostate cancer Thyroid cancer Maternal Grandmother , breast CA Neoplasm Breast Breast cancer Paternal Grandmother Neoplasm Breast, ovarian Stroke Breast cancer Ovarian cancer Paternal Grandfather Diabetes type 2 Neoplasm Prostate Prostate cancer Sister Anemia Anxiety Maternal Grandfather Heart attack Social History Smoking/Tobacco Use Status: Former Tobacco Use Pack-years: 3 Tobacco: How many years used: 2 Second Hand Exposure: No Smoking risk assessment performed?: Yes Alcohol Intake: never Drug use: Never Substance use type: does not use Adopted: No Caregiver/Support person: No Foster care: No Household members: spouse, children and other Details: Parents Housing: house Number of Children: 1 number of grandchildren: 0 Communication Needs: None Education Level: college Do you need help understanding health information?: Never 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 - [place] Pets and animals: Yes (1 dog) Pets and animals: cat(s) and dog(s) Sexually active: Yes Do you think of yourself as: straight/heterosexual Current gender identity: female What is your relationship status?: How often do you talk on the phone with friends or family?: three or more times per week How often do you get together with friends or relatives?: three or more times per week Do you belong to any clubs or organized social groups?: no Panel score (0-1 are the most socially isolated patients): 2 What type of physical activity do you participate in: regular exercise and other Details: Stength training, cardio Duration: 45-60 minutes/day Frequency: 3-4 times per week Wanda/Rastafarian: Yarsanism Special wanda needs: No Seatbelt use: always Helmet use: Yes Helmet use: always Drive intox or ride w/intox motor bus driver: No Working smoke detector in home: Yes Fire extinguisher in home: Yes Carbon monox detector in home: Yes Firearms in home: No Do you feel safe at home: Yes Do you feel safe in your relationship?: Yes History History 3 Para 1 Hx # Term Pregnancies 1 Multiple births 0 Hx # Pregnancies 0 Ectopic pregnancies 0 AB induced 1 Hx Number of Living Children 1 AB spontaneous 0 Past Pregnancies Del. Date GA/Weeks # Preg Succ Route Wgt Sex Labor Lgth Anesth esia Location Prov Complic 10/12/16 39 No Yes vaginal 6 lb 4 oz Male 4 [facility] [place] Delivery Date: 10/12/16 Last Updated by: Yuly Sanders IOL due to low fluid and hypertension. Bar DS: Data Vitals/I&O Vitals and I&O: Vital Signs Temperature 98.1 F 06/05/23 07:29 Temperature Source Oral 06/05/23 07:29 Pulse 85 06/05/23 07:29 Pulse Rhythm Regular 06/05/23 07:29 Respiratory Rate 18 06/05/23 07:29 Respiratory Depth Normal 06/04/23 19:00 Blood Pressure 120/88 06/05/23 07:29 Blood Pressure Mean 98 06/05/23 07:29 Pulse Oximetry 97 06/05/23 07:29 Oxygen Delivery Method Room Air 06/04/23 07:22 Oxygen Flow Rate 0 06/04/23 07:22 Pain Level 6 06/04/23 19:00 Intake & Output 06/04/23 06/05/23 06/05/23 23:59 11:59 23:59 Intake Total 500 / 1010 Output Total 1800 / 1999 Balance -1300 / -990 Intake: IV 500 / 1010 Output: Urine 1799 Other: Urine Color Yellow Yellow Urine Appearance Clear Urine Odor None
== END 2023-06-05 14:45 | disposition home or self-care (01) | DRG 806 ==
PROVIDERS: Admitting Provider Advanced Practice Midwife; PCP Nurse Practitioner; Visit Provider Advanced Practice Midwife
DX: O13.4 Gestational [pregnancy-induced] hypertension without significant proteinuria, complicating childbirth (principal); O99.354 Diseases of the nervous system complicating childbirth; Z37.0 Single live birth; Z3A.39 39 weeks gestation of pregnancy; O70.0 First degree perineal laceration during delivery; O43.193 Other malformation of placenta, third trimester; O99.02 Anemia complicating childbirth; D64.9 Anemia, unspecified; O99.62 Diseases of the digestive system complicating childbirth; K59.09 Other constipation; Z86.16 Personal history of COVID-19; F41.9 Anxiety disorder, unspecified; G43.909 Migraine, unspecified, not intractable, without status migrainosus; Z87.891 Personal history of nicotine dependence
CPT/HCPCS: 80053; 85027; 86850; 86900; 86901

== ENCOUNTER 2023-11-05 10:53 | Outpatient (REF) | payer OTHER, SELFPAY | END 2023-11-05 10:54 | disposition home or self-care (01) | LOC: LBN 10:53 | PROVIDERS: PCP Nurse Practitioner; Visit Provider Nurse Practitioner | DX: L02.612 Cutaneous abscess of left foot; L03.032 Cellulitis of left toe | CPT/HCPCS: 87077; 87070; 87186 ==

== ENCOUNTER 2024-03-08 17:16 | Emergency (ER) | payer OTHER, SELFPAY ==
[2024-03-08 17:22] VITALS: BP 138/81; PULSE 77; RESP 16; TEMP 36.8; O2SAT 99
[2024-03-08 21:16] VITALS: BP 122/92; PULSE 81; RESP 16; TEMP 37.6; O2SAT 98
--- NOTE | 2024-03-08 21:25 | DI.RAD_ITS ---
Exam(s) XR ANKLE RT COMPLETE XR FOOT RT COMPLETE EXAM: XR ANKLE RT COMPLETE and XR foot RT complete CLINICAL HISTORY: R foot and ankle pain. TECHNIQUE: 2D digital imaging was performed of the right foot and ankle. Six images were obtained. AP, lateral and oblique views were obtained. COMPARISON: No priors for comparison. FINDINGS: BONES: No acute fracture is present. No bony destructive lesion is seen. JOINTS: The ankle mortise is normally aligned. The joint spaces are well maintained. SOFT TISSUE: Normal. IMPRESSION: Unremarkable radiographs of the right foot and ankle. DATA REPOSITORY: RADIATION DOSE DELIVERED:
--- NOTE | 2024-03-08 21:50 | ED.GENADUL_ITS ---
Discharge Plan Disposition Patient Disposition: Home Condition: Stable Discharge Details Clinical Impression: Sprain of right foot Primary Care Provider: Malu Morton ED Provider: [place] [place] Home Meds and New Rx's Prescriptions: Continued omeprazole 40 mg capsule,delayed release(DR/EC) 40 mg PO DAILY Qty: 90 1RF Discharge Instructions Instructions: Foot Sprain ED Additional Instructions: You were seen in the emergency department for your twisting injury to your right foot/ankle. The x-rays are negative for any acute fracture, this is likely a bad sprain. Please use the short boot and crutches as needed, partial weight- bear with crutches, rest, ice, compress and elevate the foot often over the next few days. Please use therapeutic dosing of Tylenol (acetamenophen) & Advil (ibuprofen) in an alternating fashion as follows: Take 1000mg of Tylenol every 6 hours without missing doses- that is 4 times per day. Senior Care in between the Tylenol dosings, take 400-600mg of Advil also on a 6 hour schedule, that is also 4 times per day. The daily maximum dosing of Tylenol is 4000mg, and the daily maximum dosing of Advil is 2400mg. This is safe to do for weeks. Please note that some common cold medications & prescription pain medications may contain acetamenophen and you need to read OTC drug labels and factor that in to maximum daily dosings. Please follow-up with orthopedics for persistent pain past 2 weeks please return to the ER for any signs of neurovascular compromise. Referrals: [facility] [Provider Group] Malu Morton, SPIRITUAL COUNSELOR [Primary Care Provider] - Discharge Data Discharge Date/Time-TO BE ENTERED AT DEPARTURE: 03/08/24 22:52 HPI General Date/Time Provider Initiated Documentation: 03/08/24 18:17 . HPI Narrative: 33 year-old female presents to ED today by POV/ambulating with a chief complaint of R ankle pain, twisted it stepping in a divet on uneven ground- felt a crunch with onset just prior to arrival. Quality described as unable to bear weight on R foot- R-foot dominant, no radiation to complete numbness, tingling, endorses pain with plantar/dorsiflexion, has pain focal to base of lateral 5th MTP, no proximal calf pain/swelling. Severity is described as severe. Palliating factors include nothing specific. Provoking factors include nothing specific. Patient not anticoagulated. Related Data Home Medications ?Medication ?Instructions ?Recorded ?Confirmed omeprazole 40 mg capsule,delayed 40 mg PO DAILY #90 caps 04/22/23 03/08/24 release Previous Rx's ?Medication ?Instructions ?Recorded omeprazole 40 mg capsule,delayed 40 mg PO DAILY #90 caps 04/22/23 release Allergies Allergy/AdvReac Type Severity Reaction Status Date / Time No Known Allergies Allergy Verified 03/08/24 17:22 General Stated Complaint: Orthopedic BASIL: 4 Review of Systems All systems reviewed & are unremarkable except as noted in HPI and below Exam Narrative Exam Narrative: GENERAL APPEARANCE: Well-nourished, non-toxic, awake and alert, atraumatic, no acute distress. SKIN: Warm, pink, dry, intact, without rashes/lesions/ulcerations. HEAD: Normocephalic, atraumatic, normal hair distribution for gender/age. EYES: Pupils PERRLA, EOMs intact without nystagmus, normal conjunctiva, no exudates on lids/lashes. ENT: Nares patent, no circumoral cyanosis, no facial swelling NECK: Supple, trachea midline, painless cervical ROM. LUNGS/CHEST: Non-labored respirations, normal A/P diameter, symmetrical expansion, no chest wall deformity HEART (CV/PV): Regular rate, no peripheral edema, no JVD. ABDOMEN: Soft, non-distended, no guarding. MSK: Normal ROM, no swelling/deformity to bilateral UEs or LEs, moving all extremities without weakness, no cyanosis, spine midline without tenderness, normal curvature. R lateral 5th MTP pain, sensation intact, R dorsalis pedis pulse 2+, no crepitus, no deformity, no malleolar swelling/tenderness. NEURO: Mental Status AAOx4 - alert to person, place, time, events No facial droop, no forehead involvement. Motor: No focal weakness - strength 5/5 in bilateral UEs and LEs, proximal and distal, symmetric. Sensory: sensation intact to light touch globally. Gait NT PSYCH: euthymic, cooperative, pleasant, appropriate speech Course Vital Signs Vital signs: Vital Signs Temperature 36.8 C 03/08/24 17:22 Pulse 77 03/08/24 17:22 Respiratory Rate 16 03/08/24 17:22 Blood Pressure 138/81 03/08/24 17:22 Pulse Oximetry 99 03/08/24 17:22 Temperature 37.6 C H 03/08/24 21:16 Temperature Source Temporal Artery Scan 03/08/24 21:16 Pulse 81 03/08/24 21:16 Respiratory Rate 16 03/08/24 21:16 Respiratory Effort Normal, Non-Labored 03/08/24 21:16 Respiratory Depth Normal 03/08/24 21:16 Respiratory Pattern Normal 03/08/24 21:16 Blood Pressure 122/92 H 03/08/24 21:16 Blood Pressure Mean 102 03/08/24 21:16 Blood Pressure Position Sitting 03/08/24 21:16 Pulse Oximetry 98 03/08/24 21:16 Oxygen Delivery Method Room Air 03/08/24 21:16 Oxygen Flow Rate 0 03/08/24 21:16 Pain Level 5 03/08/24 21:45 Medical Decision Making This dictation utilizes [id number] dictation software and may contain unedited grammatical errors. 33 year-old female presents to ED today by POV/ambulating with a chief complaint of R ankle pain, twisted it stepping in a divet on uneven ground- felt a crunch with onset just prior to arrival. Quality described as unable to bear weight on R foot- R-foot dominant, no radiation to complete numbness, tingling, endorses pain with plantar/dorsiflexion, has pain focal to base of lateral 5th MTP, no proximal calf pain/swelling. Severity is described as severe. Palliating factors include nothing specific. Provoking factors include nothing specific. Patients' medical history: nothing specific. Family and social history: nothing specific. Pertinent exam findings / vital signs include R lateral 5th MTP pain, sensation intact, R dorsalis pedis pulse 2+, no crepitus, no deformity, no malleolar swelling/tenderness. Differential / pathologies of concern include fracture, sprain strain/contusion. Diagnostic studies of: -XR R Foot & XR R Ankle - no fracture seen by provider read. Interventions of: -short boot and crutches. ED Course/Assessment/Plan: Counseled patient on likely ankle/foot sprain, no visible fracture, counseled on conservative management at home RICE therapy therapeutic dosing of Tylenol and ibuprofen and follow-up with orthopedics for any complications or pain persistent past 2 weeks, strict return criteria for signs of neurovascular compromise. Findings not consistent with fracture/neurovascular compromise. Disposition of sprain of right foot. Patient verbalized understanding of the plan and return to ED criteria and engaged in shared decision making. Medical Records Medical records reviewed: Yes I reviewed the patient's medical records. Imaging Data Radiologic Study: Attestation: I personally reviewed and interpreted this imaging study as follows: Imaging: X-Ray Radiologist's impression: Exam: XR Right Ankle Exam date and time: 03/08/2024 10:09 PM Age: 33 years old Clinical indication: Injury or trauma; Fall; Blunt trauma; Right; Injury date: 03/08/24; Patient HX: R foot and ankle pain TECHNIQUE: Imaging protocol: Radiologic exam of the right ankle. Views: 3 or more views. COMPARISON: No relevant prior studies available. FINDINGS: Bones/joints: Normal. Soft tissues: Normal. IMPRESSION: No acute findings. Dictated and Authenticated by: Henrik Huynh MD. Radiologic Study #2: Attestation: I personally reviewed and interpreted this imaging study as follows: Imaging: X-Ray Radiologist's impression: Exam: XR Right Foot Exam date and time: 03/08/2024 10:12 PM Age: 33 years old Clinical indication: Injury or trauma; Fall; Blunt trauma; Right; Injury date: 03/08/24; Patient HX: R foot and ankle pain TECHNIQUE: Imaging protocol: Radiologic exam of the right foot. Views: 3 or more views. COMPARISON: CR XR ANKLE RT COMPLETE 03/08/2024 10:09 PM FINDINGS: Bones/joints: Normal. Soft tissues: Normal. IMPRESSION: No acute findings. Dictated and Authenticated by: Henrik Huynh MD. Lab Data Lab results reviewed: Yes I reviewed the patient's lab results. Quality:SDOH Health Related Social Needs: No Data to Display PFSH All Active Problems (Updated 03/08/24 @ 22:34 by JE Pope) Sprain of right foot (Acute) MRSA (methicillin resistant Staphylococcus aureus) infection (Acute) IUD (intrauterine device) in place (Acute) Lactating mother (Acute) care following vaginal delivery (Acute) TMJ dysfunction (Acute) Grade I hemorrhoids (Acute) 01/15/22 General Surgery Medical History Placenta succenturiata Gestational [-induced] hypertension without significant proteinuria, third trimester Elevated blood pressure affecting in third trimester, antepartum Maternal care for known or suspected placental insufficiency, third trimester, fetus 1 Maternal care for known or suspected placental insufficiency, third trimester, not applicable or unspecified Anemia affecting Urinary frequency Atypical facial pain 05/31/20 [facility] [place] Neuro Tympanosclerosis of left ear Otalgia Post-nasal drip Anxiety (07/08/17) Migraine (01/16/15) Family history of thyroid disease Inapp chg hCG early preg Rectal bleeding Bilateral otitis media Deviated nasal septum Nasal pain Rosacea Psoriasis (01/16/15) Family history of breast cancer (06/23/17) Mother and both GMs Obesity IBS (irritable bowel syndrome) Dysmenorrhea Menorrhagia Polycystic ovarian syndrome Surgical History wisdome teeth extraction Tonsillectomy and adenoidectomy 2013 Colonoscopy - MAC 2014 Cholecystectomy (03/19/17) Family History Mother Depression Neoplasm Breast Anxiety Cancer Breast cancer Hypertension Father Antoinette's disease Alcohol use disorder 11/01/21 - sober over 11 years Cancer pancreatic and thyroid Prostate cancer Thyroid cancer Maternal Grandmother , breast CA Neoplasm Breast Breast cancer Paternal Grandmother Neoplasm Breast, ovarian Stroke Breast cancer Ovarian cancer Paternal Grandfather Diabetes type 2 Neoplasm Prostate Prostate cancer Sister Anemia Anxiety Maternal Grandfather Heart attack Social History Smoking/Tobacco Use Status: Former Tobacco Use Pack-years: 3 Tobacco: How many years used: 2 Second Hand Exposure: No Smoking risk assessment performed?: Yes Alcohol Intake: never Drug use: Never Substance use type: does not use Adopted: No Caregiver/Support person: No Foster care: No Household members: spouse, children and other Details: Parents Housing: house Number of Children: 1 number of grandchildren: 0 Communication Needs: None Education Level: college Do you need help understanding health information?: Never 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 - [employer] Pets and animals: Yes (1 dog) Pets and animals: cat(s) and dog(s) Sexually active: Yes Do you think of yourself as: straight/heterosexual Current gender identity: female What is your relationship status?: How often do you talk on the phone with friends or family?: three or more times per week How often do you get together with friends or relatives?: three or more times per week Do you belong to any clubs or organized social groups?: no Panel score (0-1 are the most socially isolated patients): 2 What type of physical activity do you participate in: regular exercise and other Details: Stength training, cardio Duration: 45-60 minutes/day Frequency: 3-4 times per week Wanda/Episcopal: Protestant Special wanda needs: No Seatbelt use: always Helmet use: Yes Helmet use: always Drive intox or ride w/intox 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 Date GA/Weeks # Preg Succ Route Wgt Sex Labor Lgth Anesth esia Location [facility] 10/12/16 39 No Yes vaginal 2834.952 g Male 4 regional D [facility]as 06/04/23 39 No Yes vaginal Female 11hrs 48min Laura Cole CNM Delivery Date: 10/12/16 Last Updated by: Yuly Sanders IOL due to low fluid and hypertension. Bar Delivery Date: 06/04/23 Last Updated by: KHADIJAH Cotto
--- NOTE | 2024-03-08 23:22 | DI.VRAD_ITS ---
PROCEDURE INFORMATION: Exam: XR Right Ankle Exam date and time: 03/08/2024 10:09 PM Age: 33 years old Clinical indication: Injury or trauma; Fall; Blunt trauma; Right; Injury date: 03/08/24; Patient HX: R foot and ankle pain TECHNIQUE: Imaging protocol: Radiologic exam of the right ankle. Views: 3 or more views. COMPARISON: No relevant prior studies available. FINDINGS: Bones/joints: Normal. Soft tissues: Normal. IMPRESSION: No acute findings. Dictated and Authenticated by: Henrik Huynh MD. Ordering:CARINE Antonio MD
--- NOTE | 2024-03-08 23:23 | DI.VRAD_ITS ---
PROCEDURE INFORMATION: Exam: XR Right Foot Exam date and time: 03/08/2024 10:12 PM Age: 33 years old Clinical indication: Injury or trauma; Fall; Blunt trauma; Right; Injury date: 03/08/24; Patient HX: R foot and ankle pain TECHNIQUE: Imaging protocol: Radiologic exam of the right foot. Views: 3 or more views. COMPARISON: CR XR ANKLE RT COMPLETE 03/08/2024 10:09 PM FINDINGS: Bones/joints: Normal. Soft tissues: Normal. IMPRESSION: No acute findings. Dictated and Authenticated by: Henrik Huynh MD. Ordering:CARINE Antonio MD
== END 2024-03-08 22:52 | disposition home or self-care (01) ==
PROVIDERS: Emergency Provider Physician Assistant; PCP Nurse Practitioner
DX: S93.601A Unspecified sprain of right foot, initial encounter (principal); Z87.891 Personal history of nicotine dependence; X50.1XXA Overexertion from prolonged static or awkward postures, initial encounter; Y93.01 Activity, walking, marching and hiking; Y92.89 Other specified places as the place of occurrence of the external cause
CPT/HCPCS: 73610; 73630